=== PATIENT | male | born 1975 | race Caucasian/White ===

== ENCOUNTER → 2017-08-24 | Outpatient (CLI) | payer OTHER ==
[~2017-08-24] VITALS: Ht 180.3 cm; Wt 113.0 kg
[~2017-08-24] MED LIST: CATAPRES0.1 MG PO; CLONIDINE HCL0.1 MG; CYCLOBENZAPRINE 10 M; CYMBALTA20 MG PO; Cymbalta PO; ERGOCALCIF50000 UNIT PO; FENOFIBRATE120 MG PO; FLEXERIL10 MG PO; GEMFIBROZIL600 MG PO; HYDROCODON-ACE1 EAC7 PO; IBUPROFEN800 MG PO; INDOCIN25 MG PO; LIDODERM 5% P1 PATCH TD; LYRICA150 MG PO; METHADONE HCL10 MG PO; METHADONE10 MG PO; METHADONE10 MG/1 M1 PO; MORPHINE SULFAT30 M2; MOTRIN800 MG PO; NORCO 7.5/321 TABLET PO; OXYCODONE HCL30 MG; OxyCODONE PO; PERCOCET 10/1 TABLET PO; PERCOCET 5/31 TABLET PO; PREDNISONE10 MG PO; PROVENTIL17 GM IH; TESTOSTERO100 MG/11 IM; VALIUM5 MG PO; WELLBUTRIN XL300 MG PO; XANAX1 MG PO
[2017-08-24 07:53] VITALS: BP 107/72
== END | disposition home or self-care (01) ==
LOC: IVINF 07:30
PROVIDERS: Internal Medicine
DX: D35.2 Benign neoplasm of pituitary gland (principal)
CPT/HCPCS: 80400; 82024 90; 82533 91; 96374; J0834

== ENCOUNTER 2018-03-08 09:04 | Emergency (ER) | payer OTHER ==
[~2018-03-08] VITALS: Ht 180.3 cm; Wt 107.0 kg
[2018-03-08 09:41] LABS: APPEARANCE CLEAR ((CLEAR)); BILIRUBIN NEGATIVE; BLOOD NEGATIVE; COLOR AMBER ((YELLOW)); GLUCOSE (STRIP) NEGATIVE; KETONES 5; LEUKOCYTES TRACE; NITRITE NEGATIVE; PROTEIN (STRIP) 100; SPECIFIC GRAVITY 1.032 (1.000-1.030)
[2018-03-08 09:47] LABS: HEMATOCRIT 47.9 % (38.0-50.0); MCH 29.2 PG (29.0-34.0); MCHC 34.7 G/DL (30.0-36.0); MCV 84.3 FL (86-99); PLATELET COUNT 360 K/uL (156-360); RBC DIS.WIDTH-CV 13.1 % (11.8-14.6); RBC DIS.WIDTH-SD 40.4 % (39-53); RED BLOOD COUNT 5.68 M/uL (4.00-5.50); WHITE BLOOD COUNT 11.5 K/uL (4.1-10.2)
[2018-03-08 09:52] LABS: HEMOGLOBIN 16.6 G/DL (12.5-16.6)
[2018-03-08 09:54] LABS: BACTERIA NONE SEEN /HPF; EPITHELIAL CELLS RARE /HPF; HYALINE CASTS 0-5 /LPF; MUCUS 4+ /LPF; RED BLOOD CELLS 0-5 /HPF (0-5); WHITE BLOOD CELLS 0-5 /HPF (0-5)
[2018-03-08 10:10] LABS: ALBUMIN 4.8 g/dL (3.2-4.8); CHLORIDE 104 mEq/L (99-109); POTASSIUM 3.4 mEq/L (3.7-5.4); SODIUM 140 mEq/L (136-147)
[2018-03-08 10:13] LABS: GLUCOSE 151 mg/dL (70-99); TOTAL PROTEIN 8.3 g/dL (6.4-8.3)
[2018-03-08 10:15] LABS: TOTAL BILIRUBIN 0.6 mg/dL (0.0-1.0)
[2018-03-08 10:16] LABS: ALKALINE PHOSPHATASE 41 IU/L (3-129); CREATININE 1.4 mg/dL (0.6-1.3); GFR ESTIMATE (CALCULATED) > 59 mL/min/ (58.99-99999)
[2018-03-08 10:17] LABS: UREA NITROGEN (BUN) 12 mg/dL (9-23)
[2018-03-08 10:18] LABS: AST (GOT) 31 IU/L (2-34)
[2018-03-08 10:19] LABS: ALT (GPT) 22 IU/L (3-49)
[2018-03-08 10:20] LABS: LIPASE 9 U/L (1.0-51.0)
[2018-03-08] MEDS ORDERED: PHENERGAN25 MG PR (12:40)
[2018-03-08] MEDS ORDERED: REGLAN5 MG PO (12:40)
[2018-03-08 13:06] VITALS: BP 119/62
== END 2018-03-08 13:17 | disposition home or self-care (01) ==
LOC: EME 09:04
PROVIDERS: Nurse Practitioner Family
DX: R11.2 Nausea with vomiting, unspecified (principal); E86.0 Dehydration; F12.90 Cannabis use, unspecified, uncomplicated; K21.9 Gastro-esophageal reflux disease without esophagitis; F32.9 Major depressive disorder, single episode, unspecified; F17.200 Nicotine dependence, unspecified, uncomplicated; Z87.442 Personal history of urinary calculi
CPT/HCPCS: 74022; 80053; 81003; 83690; 85027; 99281; 99285; J2405; J2765; J7030

== ENCOUNTER → 2018-04-26 | Outpatient (CLI) | payer OTHER ==
[~2018-04-26] VITALS: Ht 180.3 cm; Wt 99.3 kg
[~2018-04-26] MED LIST changes: -FENOFIBRATE120 MG PO; +FENOFIBRATE160 M1 PO; -METHADONE10 MG/1 M1 PO; +METHADOSE10 MG/1 ML PO; +OXYCODONE HCL10 MG PO; +PHENERGAN25 MG PR; +PRILOSEC OTC20 MG PO; +PROAIR HFA8.5 GM IH; +REGLAN5 MG PO; +TESSALON200 MG PO; +[UNRECOGNIZED DRUG - OTHER]
== END | disposition home or self-care (01) ==
LOC: AMB 10:00
PROC: 0DB68ZX Excision of Stomach, Via Natural or Artificial Opening Endoscopic, Diagnostic (ICD-10-PCS; principal; 2018-04-26)
DX: K29.70 Gastritis, unspecified, without bleeding (principal); R63.4 Abnormal weight loss; K59.09 Other constipation; K21.9 Gastro-esophageal reflux disease without esophagitis; E78.5 Hyperlipidemia, unspecified; Z80.3 Family history of malignant neoplasm of breast; F17.200 Nicotine dependence, unspecified, uncomplicated
CPT/HCPCS: 88305; 88342 TC